=== PATIENT | female | born 2000 | race Caucasian/White ===

== ENCOUNTER 2019-12-13 10:24 | Outpatient (CLI) | payer BC, SELFPAY ==
--- NOTE | ~2019-12-13 | US_ITS ---
US soft tissue LE LT DATE: 12/13/2019 11:01 INDICATION: Localized swelling, mass, lump, left lower limb TECHNIQUE: Real-time imaging and Doppler analysis of soft tissues at the left knee COMPARISON: None FINDINGS: There is a multilocular septated cyst in the posterolateral left knee area, with through tr ansmission and posterior enhancement and no internal vascularity. Overall dimension measures up to ap proximately 2.4 x 1.9 x 2.6 cm dimension. IMPRESSION: Multilocular approximately 1.9 x 2.4 x 2.6 cm cyst at the posterolateral aspect of the le ft knee Reviewed, dictated and finalized at [facility]. Reviewed, dictated and finalized at [facility]. IMPRESSION: Multilocular approximately 1.9 x 2.4 x 2.6 cm cyst at the posterola teral aspect of the left knee
== END 2019-12-13 10:25 ==
PROVIDERS: PCP Family Medicine; Visit Provider Physician Assistant Medical
DX: R22.42 Localized swelling, mass and lump, left lower limb (principal)
CPT/HCPCS: 76882